=== PATIENT | female | born 1985 | race Caucasian/White ===

== ENCOUNTER 2024-10-24 21:04 | Emergency (ER) | payer OTHER ==
[~2024-10-24] VITALS: Ht 157.5 cm; Wt 74.8 kg
[2024-10-24 21:15] VITALS: BP 131/82
[2024-10-24] MEDS ORDERED: KETO10TA2 PO (23:36)
[2024-10-24] MEDS ORDERED: HYDROCODONE/APAP 10-325 MG TABLET ONE (23:36)
[2024-10-24] MEDS: HYDROCODONE/APAP 10-325 MG TABLET PO ONE (23:41)
[2024-10-25] MEDS: LIDOCAINE HCL 1% 20 ML VIAL IJ ONE (00:10)
[2024-10-25] MEDS: ONDANSETRON ODT 4 MG TAB.RAPDIS SL ONE (00:23)
[2024-10-25] MEDS: MORPHINE SULFATE 2 MG/1 ML DISP.SYRIN IM ONE (00:23)
[2024-10-25 00:27] VITALS: BP 131/82; O2SAT 96
== END 2024-10-25 00:28 | disposition home or self-care (01) ==
LOC: ER 21:25
DX: S62.626A Displaced fracture of middle phalanx of right little finger, initial encounter for closed fracture (principal); E03.9 Hypothyroidism, unspecified; Z88.0 Allergy status to penicillin; W07.XXXA Fall from chair, initial encounter; Y93.89 Activity, other specified; Y92.89 Other specified places as the place of occurrence of the external cause; Y99.8 Other external cause status
CPT/HCPCS: 73130; A4606; A4663